=== PATIENT | male | born 1940 | race Caucasian/White ===

== ENCOUNTER → 2016-12-14 | Outpatient (CLI) | payer MEDICARE, OTHER ==
[~2016-12-14] MED LIST: ASPI81 PO; IRON18TA PO; LISI10TA PO; METO50TA PO; OMEG1CAP53 PO; PACE200T4 PO; TAB-TAB PO; VITA100017 PO; VITA100T15 PO; VITA400C28 PO
== END ==
LOC: ELAB 09:36
PROVIDERS: ATTEND Plastic Surgery
DX: E11.9 Type 2 diabetes mellitus without complications (principal); E29.1 Testicular hypofunction; Z13.29 Encounter for screening for other suspected endocrine disorder; Z51.81 Encounter for therapeutic drug level monitoring; Z12.5 Encounter for screening for malignant neoplasm of prostate

== ENCOUNTER → 2016-12-15 | Outpatient (CLI) | payer MEDICARE, OTHER ==
[2016-12-15 11:59] LABS: HEMATOCRIT 50.9 % (39.0-51.0); MEAN CELL VOLUME 95.8 FL (80.0-100.0); MEAN CORPUSCULAR HEMOGLOBIN 33.1 PG (27.0-34.0); MEAN CORPUSCULAR HGB CONC 34.5 % (32.0-36.0); PLATELET COUNT 161 TH/MM3 (150-450); RED BLOOD COUNT 5.31 MIL/MM3 (4.50-5.90); RED CELL DISTRIBUTION WIDTH 14.4 % (11.6-17.2); REVIEW FLAG FINAL; WHITE BLOOD COUNT 10.9 TH/MM3 (4.0-11.0)
[2016-12-15 13:05] LABS: ALT (GPT) 34 U/L (12-78); ANION GAP 7 MEQ/L (5-15); AST (GOT) 28 U/L (15-37); BLOOD UREA NITROGEN 14 MG/DL (7-18); CHLORIDE 107 MEQ/L (98-107); GLOMERULAR FILTRATION RATE 74 ML/MIN (>89); GLUCOSE,FASTING 92 MG/DL (74-99); POTASSIUM 3.8 MEQ/L (3.5-5.1); SODIUM (NA) 139 MEQ/L (136-145)
[2016-12-15 13:21] LABS: ALKALINE PHOSPHATASE 55 U/L (45-117); DIGOXIN 0.4 NG/ML (0.8-2.0); HDL CHOLESTEROL 36.7 MG/DL (40.0-60.0); LDL CHOLESTEROL 57 MG/DL (0-99); TOTAL BILIRUBIN ADULT 1.2 MG/DL (0.2-1.0)
== END ==
LOC: ELAB 10:47
PROVIDERS: ATTEND Plastic Surgery
DX: E11.9 Type 2 diabetes mellitus without complications (principal); E03.9 Hypothyroidism, unspecified; E29.1 Testicular hypofunction; Z13.29 Encounter for screening for other suspected endocrine disorder; Z51.81 Encounter for therapeutic drug level monitoring; Z12.5 Encounter for screening for malignant neoplasm of prostate; Z79.899 Other long term (current) drug therapy
CPT/HCPCS: 36415; 80053; 80061; 80162; 84153; 84403; 84443; 85027

== ENCOUNTER → 2017-06-07 | Day surgery (SDC) | payer MEDICARE, OTHER ==
[~2017-06-07] MED LIST changes: +ACETAMINOPHEN 1000 MG/100 ML 100 ML IV ONE; +BUPIVACAINE/EPINEPHRINE 0.25% 50 ML VIAL ONE; +LACTATED RINGER'S 1000 ML INJ 0 ML ONE; +LIDOCAINE 1%/EPINEPHrine 1:100,000 SOLN 50 ML VIAL ONE; +MIDAZOLAM HCL 2 MG/2 ML VIAL ONE; +MINERAL OIL 10 ML VIAL ONE; +ONDANSETRON HCL 4 MG/2 ML VIAL IV PUSH ONE; +SODIUM CHLORIDE 0.9% 250 ML ADDBAG IV ONE; +VANCOMYCIN 500 MG VIAL ONE
--- NOTE | 2017-06-07 09:54 | TN ---
cc: WANG CABELLO M.D. DATE OF SURGERY: 06/07/2017 PREOPERATIVE DIAGNOSIS Actinic keratosis in the right posterior ear; lesion 3 x 1 cm PROCEDURES: 1. Destruction and curettage 2. Wide local excision of basal carcinoma located on the right at the left cheek, lesion including the margins 3 x 1 cm reconstructed intermediate repaired. 3. Destruction and curettage of an active actinic keratosis located on the left cheek for a grand total of 8 x 6 cm. 4. A wide local excision of a wide base and carcinoma, right leg anterior lower third with a defect of 4x4 including the margins and this required a full-thickness skin graft. 5. Wide local excision of basal carcinoma, left medial leg including the margins the lesion is 3.4 cm's reconstructed with a split-thickness skin graft. 6. Wide local excision of a basal carcinoma, left mid leg with a defect of 6 x 3 cm including the margins. This was constructed the utilizing a split-thickness skin graft. 7. Wide local excision of basal carcinoma, left dorsum of the dorsum of left foot with a defect of 2.5 x 3 cm including the margins was constructed with a split-thickness skin graft. 8. Lastly wide local excision of basal carcinoma located on the left posterior leg with a defect including margins 3 x 2 cm. This was reconstructed with split-thickness skin graft. SURGEON Wang Cabello MD FACS ANESTHESIA LMA general. ESTIMATED BLOOD LOSS: Minimal COMPLICATIONS None. DRAINS: None. INDICATIONS FOR PROCEDURE: The patient does have a history of severe photodamaged skin and multiple skin cancers removed. The patient had multiple skin cancers as previously mentioned reason for which is necessary to have a proper anesthetic and a proper resection. PROCEDURE IN DETAIL: He was properly consented, marked anesthetized skin sterilized with Microsin and sterile draping applied. We began with destruction and curettage of the lesion located the right posterior ear Clinical actinic keratosis for a grand total of 3 x 1 cm. I utilized a 15 blade through which went down to the papillary reticular dermis, to pinpoint bleeding and finding no evidence further pathology. Electrocauterization was utilized to ablate the capillary bleeders. It was dressed with bacitracin ointment and Xeroform gauze. Attention was directed to the left cheek, where a obviously basal carcinoma was properly excised grand total of 3 x 1 cm was located on the left lateral cheek, including the margins to a 1 cm at this was intermediate reconstruct utilizing 3-0 Monocryl suture and 5-0 fast-absorbing gut. After was properly undermined and meticulous hemostasis obtained. A round that the area, on the left cheek, an the area of severe actinic keratosis of a grand total 8 x 6 cm was properly destruct and curettage in the same fashion utilizing 50 blade and the capillary were obliterated with the bleeders. Again the defect was 8 x 6 cm. Attention was directed to the right leg where a basal carcinoma was properly excised with a grand defect of 4x4 centimeters including the margins and this was properly skin grafted with a split thickness skin graft which was obtained from the left upper lateral thigh 13,000th's of an inch one-to-one and half mesh. It was properly secured with a running 4-0 chromic suture. This leg was properly wrapping Xeroform gauze and Ector and Jacinto to properly obtain some compression. Attention was directed to the left mid leg, and basal carcinoma was wide local excised, for a grand total of 3 x 2 cm including the margins, it was properly sutured utilizing 4-0 chromic suture. The lesion contiguous to it left mid leg, 6 x 3 cm was also excised including the margins and lesion located on left dorsum 2.5 x 3 cm of the flap dorsum of the foot 2.5 x 3 cm. Again each and every one was properly suture with 4-0 fast-absorbing gut and Xeroform gauze was applied for dressings. Finally, the lesion on the posterior leg three x 2 cm including the margins was properly excised for a defect in the margins 3 x 2 cm. This was properly skin grafted as well and anchored with 4-0 chromic suture. Due to the location and complexity of all these skin grafts, grafts were properly wrapped with Xeroform gauze, Ector, and Jacinto wrap. Good viability of the tissue was noted at the end of the case. The patient's dressings for the face included Xeroform gauze as well as netting and again for the bilateral legs, Ector and 6-inch Jacinto. We have abated all the tissue was noted of the case. The patient was awakened, extubated in the operating room. He is transfer back to postanesthesia care unit in stable condition. There is appreciated. The patient the procedure fairly well. Of note is I also inject a total of 60 cc of 1% lidocaine with Afrin mixed with 0.25% Marcaine at each and every one of the lesions as previously described. MD CANDI Lee/quentin /9:16 AM /9:27 AM JUSTINO
== END | disposition home or self-care (01) ==
LOC: ESDC 06:49
PROVIDERS: ATTEND Plastic Surgery
DX: L57.0 Actinic keratosis (principal); C44.329 Squamous cell carcinoma of skin of other parts of face; C79.2 Secondary malignant neoplasm of skin; C44.719 Basal cell carcinoma of skin of left lower limb, including hip
CPT/HCPCS: 00300; 00400; 11604; 11606; 11623; 11643; 12052; 15100; 15120; 15220; 17000; 17003; 88305; J0131; J2250; J2405; J3010; J3370; J7120

== ENCOUNTER → 2017-09-27 | Outpatient (CLI) | payer MEDICARE, OTHER ==
[~2017-09-27] MED LIST changes: -ACETAMINOPHEN 1000 MG/100 ML 100 ML IV ONE; -BUPIVACAINE/EPINEPHRINE 0.25% 50 ML VIAL ONE; -LACTATED RINGER'S 1000 ML INJ 0 ML ONE; -LIDOCAINE 1%/EPINEPHrine 1:100,000 SOLN 50 ML VIAL ONE; -MIDAZOLAM HCL 2 MG/2 ML VIAL ONE; -MINERAL OIL 10 ML VIAL ONE; -ONDANSETRON HCL 4 MG/2 ML VIAL IV PUSH ONE; -SODIUM CHLORIDE 0.9% 250 ML ADDBAG IV ONE; -VANCOMYCIN 500 MG VIAL ONE
[2017-09-27 11:51] LABS: HEMATOCRIT 44.5 % (39.0-51.0); HEMOGLOBIN 14.6 GM/DL (13.0-17.0)
== END ==
LOC: ELAB 10:48
DX: K62.5 Hemorrhage of anus and rectum (principal); N40.1 Benign prostatic hyperplasia with lower urinary tract symptoms
CPT/HCPCS: 36415; 84153; 85014; 85018